=== PATIENT | male | born 1945 | race Caucasian/White ===

== ENCOUNTER 2023-02-15 11:00 | Emergency (ER) | payer OTHER ==
--- OUTSIDE RECORDS SUMMARY | 2023-02-15 11:04 | XMS REPORT | Continuity of Care Document ---
:1945 Author Organization [facility] t Address [address] [place] [address] Care Team Providers Name Role Phone Reymundo LOCKE, Uli Licona Primary Care Physician [phone] CHATO BRITTON Attending Clinician Unavailable Jhony Caldwell MD Attending Clinician Crystal Weiner Attending Clinician CHATO BRITTON Admitting Clinician Unavailable Payers Payer Name Policy Type Policy Number Effective Date Expiration Date S ource [employer] MEDICARE [id number] 2019 ADV 00:00:00 UNITED MEDICARE [id number] 2020 O 00:00:00 Problems Condition Condition Condition Status Onset Resolution Last Treating Co mments Source Name Details Category Date Date Treatment Clinician Date Mixed Mixed Disease Active [facility] hyperlipid hyperlipid 6-29 [facility] emia emia 00:00: Hospita 00 l BPH with BPH with Disease [facility] obstructio obstructio 00:00: Me dical n n 00 Center Essential Essential Disease Active 2019-07 Met hodi hypertensi hypertensi 2-29 st on on 00:00: Hospita 00 l Carotid Carotid Disease Active [facility] artery artery 4-14 st disease disease 00:00: Hospita 00 l Bilateral Bilateral Disease Active Met hodi carotid carotid 3-20 st bruits bruits 00:00: Hospita 00 l 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 Active [facility] cantwell cantwell 3-07 st artery artery 00:00: Hospita 00 l Pure Pure Disease Active Methodi hyperchole hyperchole 3-07 st sterolemia sterolemia 00:00: Ho spita 00 l History of History of Disease Active M ethodi coronary coronary 3-07 st artery artery 00:00: Hospita bypass bypass 00 l surgery surgery Heart Heart Problem Resolve 2021-03-20 Stephen nereyda disease disease d 01:26:28 l (disorder) (disorder) He rmann Resolved Problem 03/20/2021 Medical Group Hypertensi Hypertens Problem Resolve 2021-03-20 Memoria ve kevyn d 01:26:28 l disorder, disorder, Herm akiko systemic systemic arterial arterial (disorder) (disorder) Resolved Problem 03/20/2021 Medical Group Allergies, Adverse Reactions, Alerts Allergy Allergy Status Severity Reaction(s) Onset Inactive Treating Comm ents Source Name Type Date Date Clinician No Known No Known Active Memori a Medicati Medicati l on on [place] Allergie Allergie s s NO KNOWN Allergy Active [facility] Center Social History Social Habit Start Date Stop Date Quantity Comments Source [facility] Alcohol Std Drinks Medica l Center History [facility] Alcohol Binge Medical Annmarie ter History of Social 2023-01-31 2023-01-[address] function 00:00:00 00:00:00 Hospital Alcohol intake 2020-08-21 2020-08-[address] [facility] 00:00:00 00:00:00 non-drinker Medical Cente r (finding) History SDOH 2020-08-07 2020-08-[address] [facility] Alcohol Frequency 00:00:00 00:00:00 Medical Center Tobacco use and 2018-11-13 2018-11-13 Smokeless [facility] exposure 00:00:00 00:00:00 tobacco non-user Hospital Sex Assigned At [address] [facility] kes 00:00:00 00:00:00 Medical Center Smoking Status Start Date Stop Date Source Social History [facility] Tobacco smoking consumption unknown [facility] Medications Ordered Filled Start Stop Current Ordering Indication Dosage Frequency Signature Comments Components Source Medication Medication Date Date Medication? Clinician (SIG) Name Name aspirin 2023-0 Yes 81mg QD Take 1 [facility] (ECOTRIN) 7-11 tablet (81 st 81 MG 13:07: mg total) Hospita enteric 23 by mouth l coated daily. tablet tadalafiL 0 Yes 5mg Q24H Take 1 Method i (CIALIS) 5 7-11 tablet (5 st MG tablet 13:07: mg total) Hos ignacia 23 by mouth l daily as needed for erectile dysfunctio n. lisinopriL- Yes [id number] 1{tbl} QD TAKE 1 [facility] hydrochloro 7-[address] thiazide 00:00: MOUTH Hospita (PRINZIDE) 00 DAILY l 20-12.5 mg per tablet atorvastati 0 Yes [id number] TAKE 1 Methodi n (LIPITOR) 6-16 TABLET(40 st 40 mg 00:00: MG) BY Hospita tablet 00 MOUTH l DAILY metoprolol 0 Yes TAKE 1 Metho di tartrate 6-07 TABLET(25 st (LOPRESSOR) 00:00: MG) BY Hosp juan luis 25 mg 00 MOUTH l tablet TWICE DAILY lisinopriL- 2022- No [id number] 1{tbl} QD TAKE 1 Methodi hydrochloro 4-03 07-[address] thiazide 00:00: 00:00 MOUTH Hospita (PRINZIDE) 00 :00 DAILY l 20-12.5 mg per tablet atorvastati 2022- No [id number] TAKE 1 Methodi n (LIPITOR) 3-20 06-16 TABLET(40 st 40 mg 00:00: 00:00 MG) BY Hospita tablet 00 :00 MOUTH l DAILY lisinopriL- 2021-07- No [id number] 1{tbl} QD TAKE 1 Methodi hydrochloro 2-29 04-[address] thiazide 00:00: 00:00 MOUTH Hospita (PRINZIDE) 00 :00 DAILY l 20-12.5 mg per tablet atorvastati 2021-07- No [id number] TAKE 1 Methodi n (LIPITOR) 2-19 03-20 TABLET(40 st 40 mg 00:00: 00:00 MG) BY Hospita tablet 00 :00 MOUTH l DAILY lisinopriL- 2021- No [id number] 1{tbl} QD TAKE 1 [facility] hydrochloro 04-11- TABLET BY st thiazide 00:00: 00:00 MOUTH Hospita (PRINZIDE) 00 :00 DAILY l 20-12.5 mg per tablet atorvastati 2021- No [id number] TAKE 1 Methodi n (LIPITOR) 04-11 TABLET(40 st 40 mg 00:00: 00:00 MG) BY Hospita tablet 00 :00 MOUTH l DAILY atorvastati 2021- No [id number] TAKE 1 Methodi n (LIPITOR) 01-11 TABLET(40 st 40 mg 00:00: 00:00 MG) BY Hospita tablet 00 :00 MOUTH l DAILY lisinopriL- 2021- No [id number] 1{tbl} QD TAKE 1 Methodi hydrochloro 01-[address] thiazide 00:00: 00:00 MOUTH Hospita (PRINZIDE) 00 :00 DAILY l 20-12.5 mg per tablet metoprolol 2022- No 25mg Q.5D Take 1 Meth amara tartrate 3-11 -07 tablet (25 st (LOPRESSOR) 00:00: 00:00 mg total) Hospita 25 mg 00 :00 by mouth 2 l tablet (two) times a day. tadalafil 5 2020-0 Yes 5 mg = 1 Me moria MG Oral 6-21 tab, PO, l Tablet 21:09: Daily, [place] [Cialis] 00 Benign Prostatic Hyperplasi a, # 30 tab, 11 Refill(s), Pharmacy: [facility] 149, 182.88, cm, 01/11/21 14:11:00 CDT, Height, 83.636, kg, 01/11/21 14:11:00 CDT, Weight tadalafil 2020-0 Yes 20 mg = 1 Mem oria 20 MG Oral 6-21 tab, PO, l Tablet 21:09: Daily, PRN Sherri nn [Cialis] 00 for erectile dysfunctio n, Take prior to intercours e, # 10 tab, 1 Refill(s), Pharmacy: [facility] 149, 182.88, cm, 01/11/21 14:11:00 CDT, Height, 83.636, kg, 01/11/21 14:11: CDT, Weight tadalafil 2020-0 Yes 20 mg = 1 Mem oria 20 MG Oral 6-21 tab, PO, l Tablet 21:09: Daily, PRN Sherri nn [Cialis] for erectile dysfunctio n, Take prior to intercours e, # 10 tab, 1 Refill(s), Pharmacy: [facility] 149, 182.88, cm, 01/11/21 14:11:00 CDT, Height, 83.636, kg, 01/11/21 14:11:00 CDT, Weight tadalafil 5 2020-0 Yes 5 mg = 1 Me moria MG Oral 6-21 tab, PO, l Tablet 21:09: Daily, [place] [Cialis] Benign Prostatic Hyperplasi a, # 30 tab, 11 Refill(s), Pharmacy: [facility] 149, 182.88, cm, 01/11/21 14:11:00 CDT, Height, 83.636, kg, 01/11/21 14:11:00 CDT, Weight Vitamin D3 2020-0 Yes 0 Memoria 6-21 Refill(s) l 19:51: [place] Vitamin D3 2020-0 Yes 0 Memoria 6-21 Refill(s) l 19:51: [place] CoQ10 300 2020-0 Yes 300 mg = 1 Me moria mg oral 6-21 cap, PO, l capsule 19:50: Daily, 0 Oli n 00 Refill(s) Vitamin C 2020-0 Yes Daily, 0 Stephen nereyda 6-21 Refill(s) l 19:50: [place] Aspirin 2020-0 Yes 81 mg = 1 Memor ia Enteric 6-21 tab, PO, l Coated 81 19:50: Daily, 0 Herm akiko mg oral 00 Refill(s) delayed release tablet CoQ10 300 2020-0 Yes 300 mg = 1 Me moria mg oral 6-21 cap, PO, l capsule 19:50: Daily, 0 Oli n 00 Refill(s) Vitamin C 2020-0 Yes Daily, 0 Stephen nereyda 6-21 Refill(s) l 19:50: [place] 00 Aspirin 2021-0 Yes 81 mg = 1 Memor ia Enteric 6-21 tab, PO, l Coated 81 19:50: Daily, 0 Herm akiko mg oral 00 Refill(s) delayed release tablet metoprolol Yes BID, 0 Memor ia tartrate 6-21 Refill(s) l 19:49: [place] metoprolol Yes BID, 0 Memor ia tartrate 6-21 Refill(s) l 19:49: [place] Hydrochloro Yes 0 Memori a thiazide 6-21 Refill(s) l 12.5 MG / 19:48: [place] Lisinopril 00 20 MG Oral Tablet atorvastati Yes 0 Memori a n 40 mg 6-21 Refill(s) l oral tablet 19:48: Oli n 00 Hydrochloro Yes 0 Memori a thiazide 6-21 Refill(s) l 12.5 MG / 19:48: [place] Lisinopril 00 20 MG Oral Tablet atorvastati Yes 0 Memori a n 40 mg 6-21 Refill(s) l oral tablet 19:48: Oli n 00 lisinopril- Yes 1{tbl} QD Take [address] hydroCHLORO 1-30 tablet by Tian es thiazide 20:27: mouth Medical (PRINZIDE,Z 19 daily. Center ESTORETIC) 20-12.5 mg per tablet aspirin 81 Yes 81mg QD Take [address] MG EC 1-30 by mouth [facility] tablet 20:27: daily. Medical 19 Center metoprolol Yes 25mg QD Take [address] succinate 1-30 by mouth [facility] (TOPROL-XL) 20:27: daily. Medi stanislaw 25 MG 24 hr 19 [place] tablet atorvastati Yes 40mg QD Take [address] n (LIPITOR) 1-30 by mouth Luke s 40 MG 20:27: daily. Medical tablet 19 Center ascorbic Yes 100mg QD Take [address] acid, 1-30 mg by Lukes vitamin C, 20:27: mouth Medica l (vitamin C) 19 daily. [place] 100 MG tablet tamsulosin Yes .4mg QD Take 1 [facility] S t (FLOMAX) 1-30 capsule [facility] 0.4 mg Cap 00:00: (0.4 mg Medi stanislaw 24 hr 00 total) by Center capsule mouth daily. Immunizations Ordered Immunization Filled Immunization Date Status Commen ts Source Name Name PFIZER COVID-19 MRNA 2020-09-22 Completed [facility] odist VACCINATION 00:00:00 Hospital PFIZER COVID-19 MRNA 2020-09-01 Completed Meth odist VACCINATION 00:00:00 Hospital Vital Signs Vital Name Observation Time Observation Value Comments Source WEIGHT 2020-08-21 06:07:00 84.052 kg HEIGHT 2020-08-21 06:07:00 182.9 cm HEIGHT 2020-08-07 15:14:00 182.9 cm WEIGHT 2020-08-07 15:14:00 84.369 kg WEIGHT 2020-08-21 06:07:00 84.052 kg HEIGHT 2020-08-21 06:07:00 182.9 cm HEIGHT 2020-08-07 15:14:00 182.9 cm WEIGHT 2020-08-07 15:14:00 84.369 kg Systolic blood 2023-01-31 18:07:00 134 mm[Hg] [facility] Hospital pressure Diastolic blood 2023-01-31 18:07:00 67 mm[Hg] [facility] Hospital pressure Heart rate 2023-01-31 18:07:00 62 /min [facility] Body height 2023-01-31 18:07:00 182.9 cm [facility] Body weight 2023-01-31 18:07:00 87.998 kg [facility] BMI 2023-01-31 18:07:00 26.31 kg/m2 [facility] Height 2021-01-11 19:11:00 182.88 cm [facility] Weight 2021-01-11 19:11:00 [facility] BMI Calculated 2021-01-11 19:11:00 Barry Mora Procedures Procedure Date / Time Performing Clinician Source Performed ECG 12-LEAD 2023-01-31 17:09:41 Jhony Caldwell Ho spital Hernia repair [facility] TURP - Redo transurethral Barry Mora resection of prostate Knee replacement [facility] n Vasectomy [facility] Plan of Care Planned Activity Planned Date Details Comments Source Future Scheduled 2023-03-24 Influenza Vaccine (#1) [facility] Test 00:00:00 [code = Influenza Medical Ce nter Vaccine (#1)] Future Scheduled 2023-02-02 65+ [facility]OC[facility]CCAL [facility] Test 13:28:44 VACCINE (1 - PCV) [code = 65+ PNEUMOCOCCAL VACCINE (1 - PCV)] Future Scheduled 2023-02-02 Hepatitis C screening [facility] Test 13:28:44 (procedure) [code = 553222978] Future Scheduled 2023-02-02 SHINGLES VACCINES (1 [facility] Test 13:28:44 of 2) [code = SHINGLES VACCINES (1 of 2)] Future Scheduled 2023-02-02 COVID-19 VACCINE (3 - [facility] Test 13:28:44 Pfizer series) [code = COVID-19 VACCINE (3 - Pfizer series)] Future Scheduled 2023-02-02 INFLUENZA VACCINE Method [facility] Test 13:28:44 [code = INFLUENZA VACCINE] Future Scheduled 2022-07-[address] [facility] Test 00:00:00 (12+) [code = Medical Center DEPRESSION SCREENING (12+)] Future Scheduled 2022-07-24 FALLS RISK SCREENING [facility] Test 00:00:00 [code = FALLS RISK Medical C enter SCREENING] Future Scheduled 2021-08-[address] [facility] Test 00:00:00 Counseling and Medical Cente r Screening (12+) [code = Tobacco Cessation Counseling and Screening (12+)] Future Scheduled 2020-07-[address] [facility] Test 00:00:00 WELLNESS (YEAR 2 or Medical Center FIRST YEAR if no IPPE) [code = MEDICARE ANNUAL WELLNESS (YEAR 2 or FIRST YEAR if no IPPE)] Future Scheduled 2009 PNEUMOCOCCAL 65+ YRS [facility] Test 00:00:00 (1 - PCV) [code = Medical Ce nter PNEUMOCOCCAL 65+ YRS (1 - PCV)] Future Scheduled 1994 SHINGLES VACCINES ([address] [facility] Test 00:00:00 of 2) [code = SHINGLES Medic al Center VACCINES (1 of 2)] Future Scheduled 1963 DTAP/TDAP/TD VACCINES [facility] Test 00:00:00 (1 - Tdap) [code = Medical C enter DTAP/TDAP/TD VACCINES (1 - Tdap)] Future Scheduled 1962 HEPATITIS C SCREENING [facility] Test 00:00:00 [code = HEPATITIS C Medical Center SCREENING] Future Scheduled 1945-01-12 COVID-19 VACCINE (#1) [facility] Test 00:00:00 [code = COVID-[address] VACCINE (#1)] Encounters Start End Encounter Admission Attending Care Care Encounter Source Date/Time Date/Time Type Type Clinicians Facility Department ID 2021-04-30 [facility] [id number] [facility] 21:30:42 HERRIMAN 2023-01-31 2023-01-31 Office Javi, 1.2.840.1 [id number] Methodi 13:10:00 13:20:00 Visit Jhony Redd50.1.[address] 3.430.2.7 Hospit a .3.875658 l .8 2023-01-31 2023-01-31 Outpatient JAVI [facility] [id number] [address] [place] 00:00:00 00:00:[address] 2023-01-21 2023-01-21 Refill Javi, 1.2.840.1 [id number] Methodi 00:00:00 00:00:00 [address]ue [address].1.[address] 3.430.2.7 Hospit a .3.313219 l .8 2023-01-06 2023-01-06 Refill Javi, 1.2.840.1 [id number] Methodi 00:00:00 00:00:[address] 3.430.2.7 Hospit a .3.641732 l .8 2022-12-27 2022-12-27 Refill Javi, 1.2.840.1 [id number] Methodi 00:00:00 00:00:[address].1[address] 3.430.2.7 Hospit a .3.227812 l .8 2022-10-23 2022-10-23 Refill Caldwell, 1.2.840.1 [id number] Methodi 00:00:00 00:00:[address] 3.430.2.7 Hospit a .3.235883 l .8 2022-10-08 2022-10-08 Refill Caldwell, 1.2.840.1 [id number] Methodi 00:00:00 00:00:[address] 3.430.2.7 Hospit a .3.621465 l .8 2022-07-21 2022-07-21 Refill Caldwell, 1.2.840.1 [id number] Methodi 00:00:00 00:00:[address] 3.430.2.7 Hospit a .3.054297 l .8 2022-07-10 2022-07-10 Refill Caldwell, 1.2.840.1 [id number] Methodi 00:00:00 00:00:[address] 3.430.2.7 Hospit a .3.536461 l .8 2022-04-11 2022-04-11 Refill Caldwell, 1.2.840.1 [id number] Methodi 00:00:00 00:00:[address] 3.430.2.7 Hospit a .3.749785 l .8 2022-04-09 2022-04-09 Refill Caldwell, 1.2.840.1 [id number] Methodi 00:00:00 00:00:[address] 3.430.2.7 Hospit a .3.957584 l .8 2022-01-18 2022-01-18 Outpatient JAVI, [facility] [id number] [address] [place] 00:00:00 00:00:[address] 2021-03-17 2021-03-18 Outpatient nullFlavo [facility] [id number] Memoria 14:45:00 04:59:59 r Urology 02 l Associates Sherri nn Time Share 2021-03-17 2021-03-18 [place] [id number] Memoria 14:45:00 04:59:59 r Urology 02 l Associates Sherri nn Time Share 2021-03-17 2021-03-17 Outpatient Regine, [facility] [id number] 09:45:00 23:59:59 Crystal L 02 2021-03-17 2021-03-17 Ambulatory nullFlavo [facility] [id number] Memoria 14:45:00 14:45:00 Pre-Reg r Urology 01 l Associates Sherri nn Time Share 2021-03-17 2021-03-17 Ambulatory nullFlavo [facility] [id number] Memoria 14:45:00 14:45:00 Pre-Reg r Urology 01 l Associates Sherri nn Time Share 2021-03-17 2021-03-17 Outpatient ABHAY BLANK [id number] Memoria 09:45:00 09:45:00 02 italo [place] 2021-03-17 2021-03-17 Outpatient Regine [facility] [id number] 09:45:00 09:45:00 Crystal L 2021-03-15 2021-03-15 Outpatient ABHAY BLANK [id number] Memoria 10:40:00 10:40:00 01 italo [place] 2021-01-19 2021-01-19 Outpatient [facility] [id number] [address] [place] [address] 00:00:00 00:00:00 JHONY [address] 2021-01-11 2021-01-12 Outpatient nullFlavo [facility] Multi 38 [id number] Memoria 18:55:00 04:59:59 r Specialty 00 l [facility] 2021-01-11 2021-01-12 Outpatient nullFlavo MG Multi 38 [id number] Memoria 18:55:00 04:59:59 r Specialty 00 l [facility] 2021-01-11 2021-01-11 Outpatient Guilleantonio [facility] [id number] 13:55:00 23:59:59 Crystal L 00 2021-01-11 2021-01-11 [facility] [id number] Memoria 13:55:00 13:55:00 00 l [place] 2020-09-22 2020-09-22 Outpatient [facility] [id number] [place] 00:00:00 00:00:[address] 2020-09-01 2020-09-01 Outpatient [facility] [id number] [place] 00:00:00 00:00:[address] 2020-08-07 2020-08-07 Outpatient [facility] [id number] [facility] 00:00:00 00:00:00 2020-07-21 2020-07-21 Outpatient CALDWELL, [facility] [id number] [place] 00:00:00 00:00:00 JHONY [address] 2020-07-07 2020-07-07 Outpatient CALDWELL, [facility] [id number] [place] 00:00:00 00:00:00 JHONY [address] 2020-01-14 2020-01-14 [facility] [id number] [place] 00:00:00 00:00:00 JHONY [address] 2020-01-06 2020-01-06 Outpatient CALDWELL, [facility] [id number] [place] 00:00:00 00:00:00 JHONY [address] 2019-11-05 2019-11-05 Outpatient CALDWELL, [facility] [id number] [place] 00:00:00 00:00:[address] JHONY [address] Results Test Description Test Time Test Comments Results Result Comments Source ECG 12 lead 2023-02-02 11:03:21 Test Item Value Reference Range Interpretation Comme nts Ventricular rate (test code = 253) 64 Atrial rate (test code = 255) 64 AK interval (test code = 266) 150 QRSD interval (test code = 260) 92 QT interval (test code = 264) 408 QTC interval (test code = 265) 420 P axis 1 (test code = 267) 36 QRS axis 1 (test code = 268) 76 T wave axis (test code = 270) 31 EKG impression (test code = 273) Normal sinus rhythm-Normal ECG-In automated comparison with ECG of 19-JAN-2021 13:01,-No significant change was found- [facility] [id number] 16:38:00Surgical Pathology Report Case: [id number] Authorizing Provider: Chato Britton MD Collected: 08/21/2020 09:25 AM Ordering Location: [facility] Received: 08/21/2020 11:28 AM SERVICES Pathologist: Donn Culp MD Specimen: Prostate, TURP A. PROSTATE, TRANSURETHRAL RESECTION:- NODULAR HYPERPLASIA - FOCAL ACUTE INFLAMMATION Signing Pathologist Direct Phone Line: [phone] signed by Donn Culp MD on 08/24/2020 at 4:38 [id number] stone, Benign prostatic hyperplasia, unspecified whether lower urinary tract symptoms present ProstateReceived informalin labeled the patient's name, accession number and "prostate TURP" is a 54 g, 11.5 x 8.5 x 2.5 cm aggregate of correia rubbery tissue. Silo Worker sections are submitted in A1-A 20.KATHARINA Carmichael, HT (ASCP)PerformedU/S, RENAL, [id number] 19:11:00Reason for exam:->[facility] KRYSTINA HAIR KANU : 1945 Sex: MFINAL REPORT TECHNIQUE: Grayscale ultrasound of the kidneys and bladder. INDICATION: KEVYN. COMPARISON: None. FINDINGS: RIGHT KIDNEY: The right kidney measures 11.7 x 5 x 6 cm with a cortical thickness of 1.5 cm. No solid mass lesions. No hydronephrosis. Renal artery and vein are patent. LEFT KIDNEY: The left kidney measures 11.4 x 6.4 x 5.7 cm with a cortical thickness of 1.4 cm. No solid mass lesions. No hydronephrosis. Renal artery and vein are patent. BLADDER: The bladder wall is mildly thickened and trabeculated. IMPRESSION: 1.No sedation for the acute kidney injury on this ultrasound. Specifically, no hydronephrosis. 2.The bladder is trabeculated with a thickened wall, possibly due to chronic outlet obstruction. Signed: Toan Gonzales MDReport Verified Date/Time: 08/22/2020 19:11:26 Reading Location: [facility] B1 C013Y CT Body Reading Room Electronically signed by: Jn SUAZO 08/22/2020 07:11 PMBASIC METABOLIC [id number] 15:24:00 Test Item Value Reference Range Interpretation Comments SODIUM (BEAKER) 134 meq/L 136-145 L (test code = 381) POTASSIUM (BEAKER) 4.0 meq/L 3.5-5.1 (test code = 379) CHLORIDE (BEAKER) 104 meq/L 98-107 (test code = 382) CO2 (BEAKER) (test 25 meq/L 22-29 code = 355) BLOOD UREA NITROGEN 37 mg/dL 7-21 H (BEAKER) (test code = 354) CREATININE (BEAKER) 1.98 mg/dL 0.57-1.25 H (test code = 358) GLUCOSE RANDOM 103 mg/dL 70-105 (BEAKER) (test code = 652) CALCIUM (BEAKER) 7.4 mg/dL 8.4-10.2 L (test code = 697) EGFR (BEAKER) (test 33 mL/min/1.73 ESTIMA MARY GFR IS code = 1092) sq m NOT ACCURATE CREATININE CLEARANCE IN PREDICTING GLOMERULAR FILTRATION RATE . ESTIMATED GFR I S NOT APPLICABLE FOR DIALYSIS PATIEN TS. [place] ID - EDASIBASIC METABOLIC [id number] 12:01:00 Test Item Value Reference Range Interpretation Comments SODIUM (BEAKER) 129 meq/L 136-145 L (test code = 381) POTASSIUM (BEAKER) 4.0 meq/L 3.5-5.1 Specimen slightly (test code = 379) hemolyzed CHLORIDE (BEAKER) 99 meq/L 98-107 (test code = 382) CO2 (BEAKER) (test 21 meq/L 22-29 L code = 355) BLOOD UREA NITROGEN 36 mg/dL 7-21 H (BEAKER) (test code = 354) CREATININE (BEAKER) 1.99 mg/dL 0.57-1.25 H Specimen slightly (test code = 358) hemolyzed GLUCOSE RANDOM 117 mg/dL 70-105 H (BEAKER) (test code = 652) CALCIUM (BEAKER) 7.7 mg/dL 8.4-10.2 L (test code = 697) EGFR (BEAKER) (test 33 mL/min/1.73 ESTIMA MARY GFR IS code = 1092) sq m NOT ACCURATE CREATININE CLEARANCE IN PREDICTING GLOMERULAR FILTRATION RATE . ESTIMATED GFR I S NOT APPLICABLE FOR DIALYSIS PATIEN TS. [place] ID - DBCBC W/PLT COUNT & AUTO [id number] 11:35:00 Test Item Value Reference Range Interpretation Comments WHITE BLOOD CELL COUNT (BEAKER) 15.6 K/ L 3.5-10.5 H (test code = 775) RED BLOOD CELL COUNT (BEAKER) 3.88 M/ L 4.63-6.08 L (test code = 761) HEMOGLOBIN (BEAKER) (test code = 12.0 GM/DL 13.7-17.5 L 410) HEMATOCRIT (BEAKER) (test code = 33.9 % 40.1-51.0 L 411) MEAN CORPUSCULAR VOLUME (BEAKER) 87.4 fL 79.0-92.2 (test code = 753) MEAN CORPUSCULAR HEMOGLOBIN 30.9 pg 25.7-32.2 (BEAKER) (test code = 751) MEAN CORPUSCULAR HEMOGLOBIN CONC 35.4 GM/DL 32.3-36.5 (BEAKER) (test code = 752) RED CELL DISTRIBUTION WIDTH 14.1 % 11.6-14.4 (BEAKER) (test code = 412) PLATELET COUNT (BEAKER) (test 142 K/CU MM 150-450 L code = 756) MEAN PLATELET VOLUME (BEAKER) 10.4 fL 9.4-12.4 (test code = 754) NUCLEATED RED BLOOD CELLS 0 /100 WBC 0-0 (BEAKER) (test code = 413) NEUTROPHILS RELATIVE PERCENT 90 % (BEAKER) (test code = 429) LYMPHOCYTES RELATIVE PERCENT 3 % (BEAKER) (test code = 430) MONOCYTES RELATIVE PERCENT 5 % (BEAKER) (test code = 431) EOSINOPHILS RELATIVE PERCENT 2 % (BEAKER) (test code = 432) BASOPHILS RELATIVE PERCENT 0 % (BEAKER) (test code = 437) NEUTROPHILS ABSOLUTE COUNT 14.05 K/ L 1.78-5.38 H (BEAKER) (test code = 670) LYMPHOCYTES ABSOLUTE COUNT 0.41 K/ L 1.32-3.57 L (BEAKER) (test code = 414) MONOCYTES ABSOLUTE COUNT (BEAKER) 0.80 K/ L 0.30-0.82 (test code = 415) EOSINOPHILS ABSOLUTE COUNT 0.25 K/ L 0.04-0.54 (BEAKER) (test code = 416) BASOPHILS ABSOLUTE COUNT (BEAKER) 0.02 K/ L 0.01-0.08 (test code = 417) IMMATURE GRANULOCYTES-RELATIVE 0 % 0-1 PERCENT (BEAKER) (test code = 2801) BASIC METABOLIC [id number] 10:47:00 Test Item Value Reference Range Interpretation Comments SODIUM (BEAKER) 128 meq/L 136-145 L (test code = 381) POTASSIUM (BEAKER) 4.7 meq/L 3.5-5.1 Specimen markedly (test code = 379) hemolyzed CHLORIDE (BEAKER) 98 meq/L 98-107 (test code = 382) CO2 (BEAKER) (test 25 meq/L 22-29 code = 355) BLOOD UREA NITROGEN 17 mg/dL 7-21 (BEAKER) (test code = 354) CREATININE (BEAKER) 0.95 mg/dL 0.57-1.25 Specimen markedly (test code = 358) hemolyzed GLUCOSE RANDOM 96 mg/dL 70-105 (BEAKER) (test code = 652) CALCIUM (BEAKER) 7.9 mg/dL 8.4-10.2 L (test code = 697) EGFR (BEAKER) (test 77 mL/min/1.73 ESTIMA MARY GFR IS code = 1092) sq m NOT ACCURATE CREATININE CLEARANCE IN PREDICTING GLOMERULAR FILTRATION RATE . ESTIMATED GFR I S NOT APPLICABLE FOR DIALYSIS PATIEN TS. [place]rier ID - [id number] Donovan Notes Date/Time Note Provider Source 2020-08-21 15:39:24-00:[address] [facility] OPERATIVE/PROCEDURE REPORT KRYSTINA HAIR FACILITY: [facility] Billing #: [id number] Room: 16 1615 MR #: [id number] : 1945 DATE OF PROCEDURE: 08/21/2020 SURGEON: Chato Britton MD PREOPERATIVE DIAGNOSES: 1. Gross hematuria secondary to benign prostatic hyperplasia and bladder stones. 2. Benign prostatic hyperplasia with hypocontrac tile bladder, but near complete emptying. 3. Bladder stones. POSTOPERATIVE DIAGNOSES: 1. Gross hematuria secondary to benign prostatic hyperplasia and bladder stones. 2. Benign prostatic hyperplasia with hypocontrac tile bladder, but near complete emptying. 3. Bladder stones. TITLE OF OPERATION: Cystoscopy, transurethral re section of the prostate, separate cystolitholapaxy using laser of small volume bladder stones (less than 2.5 cm). OFFICE EXECUTIVE: Dr. Hussain Rain ANESTHESIA: General laryngeal mask. INDICATIONS: This patient is a 75-year-old male who I had previously seen for an elevated PSA. He had a ne gative biopsy. He has a remote history of undergoing a GreenLi ght laser for BPH. He returned after a long absence to see me last April and the GreenLight had been very successful. He had actually had 5 prior prostate biopsies. His current compl aint was hematospermia and hematuria. He was a never smok er. I did a cystoscopy with findings of several bladder ston es and large volume BPH. He underwent urodynamic study and blanton d a hypocontractile bladder but voided near completi on. I discussed this with Dr. Castaneda. He and I both fel t like he would benefit from a TURP and addressing the sto reginald at that time. He was felt to be a satisfactory risk from a Cardiology standpoint. He is taken to the operating room at this time for the planned procedure. FINDINGS: At cystoscopy, there was grade 3-4 tra beculation with very small diverticula. The ureteral orific es were within the normal orthotopic location. There were no mu cosal lesions. There were several small stones totalling about 3-4 and measuring less than 2.5 cm. These were easily fr agmented and subsequently removed with the laser. Complete mo nopolar TURP had good results. PROCEDURE IN DETAIL: The patient was brought to the cystoscopy suite. After adequate general laryngeal mask ane sthesia obtained, placed in the dorsal lithotomy positio n and his perineum and genitalia sterilely prepped and yelena ped in usual fashion. Oral antibiotics were given for prophyl axis. Rectal examination was performed with findings of a 40+ g prostate. Cystourethroscopy was performed with a 22-[place] Storz panendoscope and 70 degree lens with the finding s described. Then using the 1000 micron laser fiber at 1 joul e and 5 hertz, we fragmented the stones as described above. We then switched to the large continuous-flow resectoscope and di d the TURP beginning initially at 6 o'clock at the bladder neck and resecting channel down to the verumontanum. I th en in sequence resected the left lobe of the prostate and obtai mary lou complete hemostasis, though there was one venous sinus on that side. I did a similar procedure on the right side, resec mary the anterior apical tissue. I then finally resected the distal apical tissue adjacent to the verumontanum. All chips were removed with the Yieldex evacuator. Meticulous hem ostasis was achieved. The irrigant was clear to blood tinged and the resectoscope removed. We then placed a 24-[place] 3-way Orr catheter and on gentle balloon traction, the irr igant was clear. We connected him to a continuous bladder irrigation with saline and left the traction on. We then re turned to supine position, awakened, extubated, taken on a stretcher to the recovery room in satisfactory condition. OTTO/BENIGNO /[id number]
[2023-02-15 11:21] LABS: Absolute Lymphocytes (CBC) 1.9 K/uL (0.7-4.9); Hematocrit 42.7 % (39.6-49.0); Lymphocytes % 18.9 % (15.3-44.8); MCV 88.7 fL (80-100); MPV 8.3 fL (7.6-11.3); RBC Red Blood Cell Count 4.82 M/uL (4.33-5.43)
[2023-02-15] MEDS ORDERED: ONDANSETRON 4 MG/2 ML VIAL ONE (11:22)
[2023-02-15] MEDS ORDERED: MECLIZINE HCL 12.5 MG TAB ONE (11:22)
[2023-02-15 11:40] LABS: Albumin 3.5 g/dL (3.4-5.0); Bilirubin Direct 0.2 mg/dL (0-0.2); Bilirubin Indirect, Calculated 0.4 mg/dL (0.2-0.8); Bilirubin Total 0.6 mg/dL (0.2-1.0); Magnesium 1.8 mg/dL (1.6-2.4); Potassium 3.6 mEq/L (3.5-5.1); Protein, Total 6.7 g/dL (6.4-8.2); Troponin High Sensitivity 4.4 pg/mL (<58.9)
--- NOTE | 2023-02-15 11:51 | RAD REPORT ---
EXAM DESCRIPTION: CT - Head Brain Wo Cont - 02/15/2023 11:39 am CLINICAL HISTORY: Dizziness COMPARISON: None TECHNIQUE: Computed axial tomography of the head was obtained. IV contrast was not requested. All CT scans are performed using dose optimization technique as appropriate and may include automated exposure control or mA/KV adjustment according to patient size. FINDINGS: An intracranial bleed is not seen The ventricles are normal in caliber No extra-axial fluid collection is noted. Mild low-density areas within periventricular, deep and subcortical white matter likely represent is chemic changes secondary to small vessel disease. Fluid within the sinuses/ mastoids is not seen. IMPRESSION: No acute intracranial abnormality is seen If patient's symptoms persist MRI of the brain would be recommended
--- NOTE | 2023-02-15 12:19 | RAD REPORT ---
EXAM DESCRIPTION: Asael Single View02/15/2023 11:51 am CLINICAL HISTORY: Dizziness, nausea, weakness COMPARISON: 2014 FINDINGS: The lungs appear clear of acute infiltrate. The heart is normal size. Postsurgical changes involve chest IMPRESSION: No acute abnormalities displayed
--- NOTE | 2023-02-15 12:32 | EDPHYS ---
Physician Documentation [facility] Name: Nehemiah Huitron Age: 77 yrs Sex: Male : 1945 Arrival Date: 02/15/2023 Time: 11:00 Bed 15 Private MD: ED Physician Yahir Flaherty HPI: 02/15 11:25 This 77 yrs old Male presents to ER via EMS with complaints of Dizziness, Nausea. sp3 11:25 77-year-old male with history of hypertension presents with chief complaint of vertigo, sp3 dizziness, nausea and dry heaving without emesis since approximately 4 AM this morning. Symptoms are worsened over the last 2 hours. He denies any headache, injury, neck pain, chest pain, shortness of breath, syncope, near syncope, focal neurodeficit, speech problems, abdominal pain, vomiting or diarrhea, rash, known sick contacts, travel history, or any other signs or symptoms on review of systems at this time.. 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 - Social history:: Smoking status: Patient denies any tobacco usage or history of. ROS: 11:26 Constitutional: Negative for fever, chills, and weight loss, ENT: Negative for injury, sp3 pain, and discharge, Neck: Negative for injury, pain, and swelling, Cardiovascular: Negative for chest pain, palpitations, and edema, Respiratory: Negative for shortness of breath, cough, wheezing, and pleuritic chest pain, Abdomen/GI: Negative for abdominal pain, nausea, vomiting, diarrhea, and constipation, Back: Negative for injury and pain, MS/Extremity: Negative for injury and deformity, Skin: Negative for injury, rash, and discoloration, Psych: Negative for depression, anxiety, suicide ideation, homicidal ideation, and hallucinations, Allergy/Immunology: Negative for hives, rash, and allergies, Endocrine: Negative for neck swelling, polydipsia, polyuria, polyphagia, and marked weight changes. 11:26 All other systems are negative. Exam: 11:27 Constitutional: This is a well developed, well nourished patient who is awake, alert, sp3 and in no acute distress. Head/Face: Normocephalic, atraumatic. ENT: Nares patent. No nasal discharge, no septal abnormalities noted. External auditory canals are clear. Oropharynx with no redness, swelling, or masses, exudates, or evidence of obstruction, uvula midline. Mucous membranes moist. Neck: Trachea midline, no thyromegaly or masses palpated, and no cervical lymphadenopathy. Supple, full range of motion without nuchal rigidity, or vertebral point tenderness. No Meningismus. Chest/axilla: Normal chest wall appearance and motion. Nontender with no deformity. No lesions are appreciated. Cardiovascular: Regular rate and rhythm with a normal S1 and S2. No gallops, murmurs, or rubs. Normal PMI, no JVD. No pulse deficits. Respiratory: Lungs have equal breath sounds bilaterally, clear to auscultation and percussion. No rales, rhonchi or wheezes noted. No increased work of breathing, no retractions or nasal flaring. Abdomen/GI: Soft, non-tender, with normal bowel sounds. No distension or tympany. No guarding or rebound. No evidence of tenderness throughout. Back: No spinal tenderness. No costovertebral tenderness. Full range of motion. Skin: Warm, dry with normal turgor. Normal color with no rashes, no lesions, and no evidence of cellulitis. MS/ Extremity: Pulses equal, no cyanosis. Neurovascular intact. Full, normal range of motion. Neuro: Awake and alert, GCS 15, oriented to person, place, time, and situation. Cranial nerves II-XII grossly intact. Motor strength 5/5 in all extremities. Sensory grossly intact. Cerebellar exam normal. Normal gait. Psych: Awake, alert, with orientation to person, place and time. Behavior, mood, and affect are within normal limits. 11:27 Neuro: Neurological exam negative for focal neurodeficit. Cranial nerves II through XII are normal with horizontal only nystagmus demonstrated on extraocular exam. Gait is not tested. Motor exam is normal. Sensory exam is normal including two-point discrimination and pain and temperature.. 11:30 ECG was reviewed by the Attending Physician. EKG demonstrates normal sinus rhythm at 70 sp3 bpm with normal intervals, normal QRS, normal axis, normal ST/T-segment's without evidence of acute ischemia. Vital Signs: 11:00 BP 139 / 75; Pulse 72; Resp 12; Temp 97.7(O); Pulse Ox 98% on R/A; Weight 83.91 kg; eh3 Height 6 ft. 0 in. ; 12:10 BP 134 / 68; Pulse 65; Resp 16 S; Pulse Ox 96% on R/A; kc6 12:59 BP 144 / 78; Pulse 67; Resp 19 S; Pulse Ox 100% on R/A; kc6 11:00 Body Mass Index 25.09 (83.91 kg, 182.88 cm) [facility] MDM: 11:04 Patient medically screened. [facility] 11:29 Data reviewed: vital signs, nurses notes, EMS record, old medical records, lab test sp3 result(s), EKG, radiologic studies. ED course: 77-year-old male with vertigo dizziness and nausea. Differential diagnosis includes central vertigo, peripheral vertigo with possible labyrinthitis as well. Patient does endorse occasional hearing loss on the left side. I am not highly suspicious for TIA/CVA spectrum, acute coronary syndrome, sepsis, shock, or any other critical findings. Will obtain laboratory values, chest x-ray, EKG, CT scan of the head, and administer Zofran, normal saline, and p.o. meclizine for symptomatic control. Disposition based on patient work-up and patient course with possible discharge if work-up is negative.. 12:14 ED course: CT scan of the head and all laboratory values are within normal limits. sp3 Patient does feel better with medication. We will safely discharge him home at this time.. 02/15 11:06 Order name: Basic Metabolic Panel; Complete Time: 12:14 3 02/15 11:06 Order name: CBC with Diff; Complete Time: 12:14 3 02/15 11:06 Order name: LFT's; Complete Time: 12:14 3 02/15 11:06 Order name: Magnesium; Complete Time: 12:14 3 02/15 11:06 Order name: NT PRO-BNP; Complete Time: 12:14 3 02/15 11:06 Order name: Troponin HS; Complete Time: 12:14 3 02/15 11:06 Order name: XRAY Chest (1 view); Complete Time: 12:51 sp3 02/15 11:06 Order name: CT Head Brain wo Cont; Complete Time: 12:14 sp3 02/15 11:06 Order name: EKG; Complete Time: 11:07 sp3 02/15 11:06 Order name: Cardiac monitoring; Complete Time: 11:08 sp3 02/15 11:06 Order name: EKG - Nurse/Tech; Complete Time: 11:24 sp3 02/15 11:06 Order name: IV Saline Lock; Complete Time: 11:13 sp3 02/15 11:06 Order name: Labs collected and sent; Complete Time: 11:13 sp3 02/15 11:06 Order name: O2 Per Protocol; Complete Time: 11:08 sp3 02/15 11:06 Order name: O2 Sat Monitoring; Complete Time: 11:08 sp3 Administered Medications: 11:24 Drug: Ondansetron IVP 4 mg Route: IVP; Site: left antecubital; kc6 11:52 Follow up: Response: No adverse reaction; Nausea unchanged kc6 11:24 Drug: Meclizine PO 25 mg Route: PO; kc6 11:52 Follow up: Response: No adverse reaction kc6 11:24 Drug: NS 0.9% IV 500 ml Route: IV; Rate: bolus; Site: left antecubital; kc6 12:25 Follow up: Response: No adverse reaction; IV Status: Completed infusion; IV Intake: kc6 500ml Disposition Summary: 02/15/23 12:31 Discharge Ordered Location: Home sp3 Condition: Stable sp3 Diagnosis - Vertigo, vomiting sp3 Followup: sp3 - With: Private Physician - When: Upon discharge from the Emergency Department - Reason: Continuance of care Discharge Instructions: - Discharge Summary Sheet sp3 - Vertigo sp3 Forms: - Medication Reconciliation Form sp3 - Thank You Letter sp3 - Antibiotic Education sp3 - Prescription Opioid Use sp3 - Patient Portal Instructions sp3 Prescriptions: - Meclizine 25 mg Oral Tablet - take 1 tablet by ORAL route every 8 hours As needed; 30 tablet; Refills: 0, sp3 Product Selection Permitted - ondansetron 8 mg Oral tablet,disintegrating - take 1 tablet by ORAL route every 8 hours; 20 tablet; Refills: 0, Product sp3 Selection Permitted Signatures: Dispatcher [employer] Keven King MD MD cha Patel, Setul, MD MD sp3 Angie Carlos RN RN eh3 Charlene Thacker RN RN kc6 Corrections: (The following items were deleted from the chart) :17 11:00 PSHx: Coronary bypass; 3 3
--- NOTE | 2023-02-15 12:32 | ER ---
Nurse's Notes [facility] Name: Nehemiah Huitron Age: 77 yrs Sex: Male : 1945 Arrival Date: 02/15/2023 Time: 11:00 Bed 15 Private MD: Diagnosis: Vertigo, vomiting Presentation: 02/15 11:00 Chief complaint: EMS states: toned out to home for dizziness and nausea starting around eh3 0900 today, pt denies vomiting. Coronavirus screen: Vaccine status: Patient reports receiving the 2nd dose of the covid vaccine. Ebola Screen: No symptoms or risks identified at this time. Initial Sepsis Screen: Does the patient meet any 2 criteria? No. Patient's initial sepsis screen is negative. Does the patient have a suspected source of infection? No. Patient's initial sepsis screen is negative. Risk Assessment: Do you want to hurt yourself or someone else? Patient reports no desire to harm self or others. Onset of symptoms was February 15, 2023. 11:00 Method Of Arrival: EMS: [facility] 11:00 Acuity: AUGUST 3 eh3 11:00 Care prior to arrival: Medication(s) given: zofran 4 mg, IV initiated. 20 GA, in the eh3 left antecubital area. Triage Assessment: 11:00 General: Appears in no apparent distress. uncomfortable, Behavior is calm, cooperative, eh3 appropriate for age. Pain: Denies pain. 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 - Social history:: Smoking status: Patient denies any tobacco usage or history of. Screenin:15 [facility] ED Fall Risk Assessment (Adult) History of falling in the last 3 months, kc6 including since admission No falls in past 3 months (0 pts) Confusion or Disorientation No (0 pts) Intoxicated or Sedated No (0 pts) Impaired Gait No (0 pts) Mobility Assist Device Used No (0 pt) Altered Elimination No (0 pt) Score/Fall Risk Level 0 - 2 = Low Risk. Abuse screen: Denies threats or abuse. Denies injuries from another. Nutritional screening: No deficits noted. Tuberculosis screening: No symptoms or risk factors identified. Assessment: 11:15 General: Appears in no apparent distress. uncomfortable, Behavior is calm, cooperative, kc6 appropriate for age. Pain: Denies pain. Neuro: Level of Consciousness is awake, alert, obeys commands, Oriented to person, place, time, situation, Appropriate for age Reports dizziness. Cardiovascular: Capillary refill < 3 seconds. Respiratory: Airway is patent Trachea midline Respiratory effort is even, unlabored, Respiratory pattern is regular, symmetrical. GI: Reports nausea, vomiting, Patient currently denies diarrhea. 12:10 Reassessment: Patient appears in no apparent distress at this time. No changes from 6 previously documented assessment. Patient and/or family updated on plan of care and expected duration. Pain level reassessed. Patient is alert, oriented x 3, equal unlabored respirations, skin warm/dry/pink. 12:59 Reassessment: Patient appears in no apparent distress at this time. No changes from [facility] previously documented assessment. Patient and/or family updated on plan of care and expected duration. Pain level reassessed. Patient is alert, oriented x 3, equal unlabored respirations, skin warm/dry/pink. Vital Signs: 11:00 BP 139 / 75; Pulse 72; Resp 12; Temp 97.7(O); Pulse Ox 98% on R/A; Weight 83.91 kg; eh3 Height 6 ft. 0 in. ; 12:10 BP 134 / 68; Pulse 65; Resp 16 S; Pulse Ox 96% on R/A; kc6 12:59 BP 144 / 78; Pulse 67; Resp 19 S; Pulse Ox 100% on R/A; kc6 11:00 Body Mass Index 25.09 (83.91 kg, 182.88 cm) 3 ED Course: 11:00 Arm band placed on. 3 11:00 Maintain EMS IV. Dressing intact. Good blood return noted. Site clean \T\ dry. Gauge \T\ 3 site: 20g LAC. 11:02 Patient arrived in ED. kc6 11:04 Keven Hahn MD is Attending Physician. [facility] 11:05 Attending Physician role handed off by Keven Hahn MD sp3 11:05 Yahir Flaherty MD is Attending Physician. sp3 11:07 Charlene Thacker, RN is Primary Nurse. kc6 11:15 Patient has correct armband on for positive identification. Bed in low position. Call kc6 light in reach. Side rails up X2. Adult w/ patient. 11:16 Triage completed. eh3 11:41 CT Head Brain wo Cont In Process Unspecified. EDMS 11:48 XRAY Chest (1 view) In Process Unspecified. EDMS 13:00 No provider procedures requiring assistance completed. IV discontinued, intact, kc6 bleeding controlled, No redness/swelling at site. Pressure dressing applied. Administered Medications: 11:24 Drug: Ondansetron IVP 4 mg Route: IVP; Site: left antecubital; kc6 11:52 Follow up: Response: No adverse reaction; Nausea unchanged kc6 11:24 Drug: Meclizine PO 25 mg Route: PO; kc6 11:52 Follow up: Response: No adverse reaction kc6 11:24 Drug: NS 0.9% IV 500 ml Route: IV; Rate: bolus; Site: left antecubital; kc6 12:25 Follow up: Response: No adverse reaction; IV Status: Completed infusion; IV Intake: kc6 500ml Medication: 13:00 VIS not applicable for this client. kc6 Intake: 12:25 IV: 500ml; Total: 500ml. kc6 Outcome: 12:31 Discharge ordered by . sp3 13:00 Discharged to home via wheelchair, with family, with significant other. kc6 13:00 Condition: improved 13:00 Discharge instructions given to patient, Instructed on discharge instructions, follow up and referral plans. medication usage, Demonstrated understanding of instructions, follow-up care, medications, Prescriptions given X 2. 13:00 Patient left the ED. kc6 Signatures: Dispatcher [employer] EDKeven Fink MD MD cha Patel, Setul, MD MD sp3 Angie Carlos, EUSEBIA RN 3 Charlene Thacker, EUSE[place]IA RN kc6 Corrections: (The following items were deleted from the chart) 11:17 11:00 PSHx: Coronary bypass; 3 eh3
[2023-02-15 13:04] VITALS: TEMP 97.7
[2023-02-15 13:07] VITALS: BP 144/78; O2SAT 100
--- NOTE | 2023-02-16 13:22 | EKG ---
Test Date: 2023-02-15 Test Time: 11:22:47 Senior Publications Specialist: MUKUL MEASUREMENT RESULTS: Intervals: Rate: 69 MI: 166 QRSD: 90 QT: 426 QTc: 456 [place]: P: 78 MI: 166 QRS: 63 T: 56 INTERPRETIVE STATEMENTS: Normal sinus rhythm Normal ECG Compared to ECG 01/25/2009 19:38:19 No significant changes Electronically Signed On 02-16-23 13:20:00 CDT by Garrett Roger
== END 2023-02-15 13:00 | disposition home or self-care (01) ==
LOC: ER 11:00
DX: R42 Dizziness and giddiness (principal); R11.10 Vomiting, unspecified; I10 Essential (primary) hypertension; Z95.1 Presence of aortocoronary bypass graft
CPT/HCPCS: 85025; 80048; 36415; 83735; 80076; 84484; 83880; 70450; 71045; J8597; J2405; 93005; 96361; 96374; 99284